=== PATIENT | female | born 1980 | race American Indian/Alaskan Native ===

== ENCOUNTER 2020-10-02 18:20 | Emergency (ER) | payer BC ==
[2020-10-02 19:47] VITALS: BP 123/93
--- NOTE | 2020-10-02 19:58 | Emergency Department Report ---
ED General Adult HPI - General Chief complaint: Sore Throat Stated complaint: SORE THROAT/HEADACHE X2DAYS Source: patient Mode of arrival: Ambulatory Limitations: No Limitations - History of Present Illness Initial comments: Patient is a 40-year-old -[place] female with no past medical history presents to the ED with complaint of acute onset persistent severe sore throat with headache for the last 2 days. 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 Patient also states that she has herself been vaccinated against COVID-19 viral infection about 10 days ago. Patient denies dizziness, syncope, loss of taste or sense of smell, cough, nasal and sinus congestion, dizziness, syncope, chest pain or shortness of breath, fever and chills, diarrhea, nausea and vomiting or abdominal pain. MD Complaint: Sore throat; headache -: Sudden, days(s) (2) Location: mouth Radiation: non-radiation Severity scale (0 -10): 6 Quality: aching, constant Consistency: constant Improves with: none Worsens with: none Associated Symptoms: denies other symptoms. denies: confusion, chest pain, cough, diaphoresis, fever/chills, headaches, loss of appetite, malaise, nausea/vomiting, rash, seizure, shortness of breath, syncope, weakness Treatments Prior to Arrival: none - Related Data Previous Rx's Medication Instructions Recorded Last Taken Type Azithromycin [Zithromax Z-LYLA] 250 mg PO DAILY #6 tablet 10/02/20 Unknown Rx Ibuprofen [Motrin] 600 mg PO Q8H PRN #24 tablet 10/02/20 Unknown Rx Lidocaine Viscous 2% 10 ml PO Q6H PRN #120 ml 10/02/20 Unknown Rx Allergies Allergy/AdvReac Type Severity Reaction Status Date / Time No Known Allergies Allergy Unverified 10/02/20 19:41 ED Review of Systems ROS: Stated complaint: SORE THROAT/HEADACHE X2DAYS Other details as noted in HPI Constitutional: denies: chills, fever Eyes: denies: eye pain, eye discharge, vision change ENT: throat pain. denies: ear pain Respiratory: denies: cough, shortness of breath, wheezing Cardiovascular: denies: chest pain, palpitations Endocrine: no symptoms reported Gastrointestinal: denies: abdominal pain, nausea, diarrhea Genitourinary: denies: urgency, dysuria, discharge Musculoskeletal: denies: back pain, joint swelling, arthralgia Skin: denies: rash, lesions Neurological: headache. denies: weakness, paresthesias Psychiatric: denies: anxiety, depression Hematological/Lymphatic: denies: easy bleeding, easy bruising ED Past Medical Hx - Past Medical History Previous Medical History?: No - Surgical History Past Surgical History?: No - Social History Smoking Status: Never Smoker Substance Use Type: None - Medications Home Medications: Home Medications Medication Instructions Recorded Confirmed Last Taken Type Azithromycin [Zithromax Z-LYLA] 250 mg PO DAILY #6 tablet 10/02/20 Unknown Rx Ibuprofen [Motrin] 600 mg PO Q8H PRN #24 tablet 10/02/20 Unknown Rx Lidocaine Viscous 2% 10 ml PO Q6H PRN #120 ml 10/02/20 Unknown Rx ED Physical Exam - General Limitations: No Limitations General appearance: alert, in no apparent distress - Head Head exam: Present: atraumatic, normocephalic, normal inspection - Eye Eye exam: Present: normal appearance, PERRL, EOMI Pupils: Present: normal accommodation - ENT ENT exam: Present: mucous membranes moist, TM's normal bilaterally, normal external ear exam, other (Mildly erythematous oropharynx and tonsils) - Neck Neck exam: Present: normal inspection, full ROM - Respiratory Respiratory exam: Present: normal lung sounds bilaterally. Absent: respiratory distress, wheezes, rales, rhonchi, stridor, chest wall tenderness, accessory muscle use, decreased breath sounds, prolonged expiratory - Cardiovascular Cardiovascular Exam: Present: regular rate, normal rhythm, normal heart sounds. Absent: systolic murmur, diastolic murmur, rubs, gallop - GI/Abdominal GI/Abdominal exam: Present: soft, normal bowel sounds. Absent: tenderness, guarding, rebound, hyperactive bowel sounds, hypoactive bowel sounds, organomegaly - Extremities Exam Extremities exam: Present: normal inspection, full ROM, normal capillary refill - Back Exam Back exam: Present: normal inspection, full ROM. Absent: tenderness, CVA tenderness (R), CVA tenderness (L), muscle spasm, paraspinal tenderness, vertebral tenderness - Neurological Exam Neurological exam: Present: alert, oriented X3, CN II-XII intact, normal gait, reflexes normal - Psychiatric Psychiatric exam: Present: normal affect, normal mood - Skin Skin exam: Present: warm, dry, intact, normal color. Absent: rash ED Course Vital Signs 10/02/20 19:43 Temperature 98.7 F Pulse Rate 99 H Respiratory 18 Rate Blood Pressure 123/93 O2 Sat by Pulse 100 Oximetry ED Medical Decision Making - Medical Decision Making This is a 40-year-old -[place] female with no past medical history presents to the ED with complaint of acute onset persistent severe sore throat with headache for the last 2 days. 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 Patient also states that she has herself been vaccinated against COVID-19 viral infection about 10 days ago. In the ED, patient is alert and oriented x3 and is not in any distress. Patient was discharged home on medications based on the physical exam findings and patient's history. Patient is hemodynamically stable, ambulatory in triage and is in no distress. Patient is advised to follow-up with her primary care physician in 5 to 7 days for reevaluation or return to the ED immediately if symptoms get worse. - Differential Diagnosis Strep tonsillitis; Strep pharyngitis; Laryngitis; Covid-19 Critical care attestation.: If time is entered above; I have spent that time in minutes in the direct care of this critically ill patient, excluding procedure time. ED Disposition Clinical Impression: Acute bacterial tonsillitis Acute pharyngitis Qualifiers: Pharyngitis/tonsillitis etiology: other specified organisms Qualified Code(s): J02.8 - Acute pharyngitis due to other specified organisms Disposition: 01 HOME / SELF CARE / HOMELESS Is pt being admited?: No Does the pt Need Aspirin: No Condition: Stable Instructions: Tonsillitis, [id number], Pharyngitis, [id number] Additional Instructions: Take medication with food, drink plenty of fluids and follow-up with your primary care physician in 5 to 7 days for reevaluation. Return to the ED immediately if symptoms get worse. Prescriptions: Lidocaine Viscous 2% 10 ml PO Q6H PRN #120 ml PRN Reason: Sore Throat Ibuprofen [Motrin] 600 mg PO Q8H PRN #24 tablet PRN Reason: Pain Azithromycin [Zithromax Z-LYLA] 250 mg PO DAILY #6 tablet Referrals: [facility] [Provider Group] - 3-5 Days Forms: Work/School Release Form(ED) Time of Disposition: 19:56 Print Language: SPANISH
== END 2020-10-02 20:06 | disposition home or self-care (01) ==
LOC: ED 18:20
DX: J03.80 Acute tonsillitis due to other specified organisms (principal); B96.89 Other specified bacterial agents as the cause of diseases classified elsewhere
CPT/HCPCS: 99281